=== PATIENT | male | born 1990 | race African-American/Black ===

== ENCOUNTER 2024-09-18 18:56 | Emergency (ER) | payer MEDICAID ==
[~2024-09-18] VITALS: Ht 177.8 cm; Wt 84.0 kg
[2024-09-18 19:01] VITALS: O2SAT 98
[2024-09-18] MEDS ORDERED: OXYCODONE HCL/ACETAMINOPHEN 5/325MG TABLET PO STA (20:23)
[2024-09-18] MEDS ORDERED: CEFTRIAXONE SODIUM 2G VIAL IM ONE (20:30)
[2024-09-18] MEDS ORDERED: OXYC-100 MT (20:39)
[2024-09-18] MEDS ORDERED: AMOX1TAB16 MT (20:39)
[2024-09-18] MEDS: CEFTRIAXONE SODIUM 2G VIAL IM NR (22:29)
[2024-09-18] MEDS: OXYCODONE HCL/ACETAMINOPHEN 5/325MG TABLET PO NR (22:30)
[2024-09-18 22:33] VITALS: BP 154/85; PULSE 98; RESP 17; TEMP 37.2; O2SAT 98
== END 2024-09-18 22:31 | disposition home or self-care (01) ==
LOC: ER 18:56
DX: S61.452A Open bite of left hand, initial encounter (principal); L08.9 Local infection of the skin and subcutaneous tissue, unspecified; I10 Essential (primary) hypertension; W54.0XXA Bitten by dog, initial encounter; Y93.89 Activity, other specified; Y92.89 Other specified places as the place of occurrence of the external cause; Y99.8 Other external cause status
CPT/HCPCS: 99283; 96372; J0696